=== PATIENT | female | born 1995 | race Hispanic/Latino ===

== ENCOUNTER 2019-08-06 19:07 | Observation (INO) | payer MEDICAID ==
[~2019-08-06] VITALS: Ht 160 cm; Wt 75.7 kg
[~2019-08-06 19:07] MED LIST: IBUP-1493 PO
[2019-08-06 20:21] VITALS: BP 120/78
[2019-08-06 20:26] LABS: APPEARANCE,URINE Cloudy (CLEAR); BILIRUBIN,URINE Small (NEGATIVE); COLOR,URINE Dark Yellow (YELLOW); GLUCOSE, URINE (UA) Negative (NEGATIVE); KETONES,URINE Negative (NEGATIVE); LEUKOCYTE ESTERASE ,URINE Moderate (NEGATIVE); NITRATE,URINE Negative (NEGATIVE); OCCULT BLOOD,URINE Large (NEGATIVE); PH,URINE 6.5 (5.0-8.0); PROTEIN,URINE POS 1+ mg/dL (NEGATIVE)
[2019-08-06] MEDS ORDERED: FERR-82 PO (20:38)
[2019-08-06] MEDS ORDERED: LEVE100S7 PO (20:38)
[2019-08-06 20:39] LABS: BACTERIA,URINE Moderate /HPF (None Seen)
[2019-08-06 20:40] LABS: MUCUS,URINE Moderate LPF (None Seen)
[2019-08-06] MEDS ORDERED: PREN1TAB80 PO (20:42)
[2019-08-06 21:05] LABS: AMPHET/METH SCREEN,URINE NEGATIVE (NEGATIVE); BARBITURATE SCREEN, URINE NEGATIVE (NEGATIVE); BENZODIAZEPINES SCREEN,URINE NEGATIVE (NEGATIVE); CANNABINOID SCREEN,URINE NEGATIVE (NEGATIVE); COCAINE SCREEN,URINE NEGATIVE (NEGATIVE); OPIATE SCREEN,URINE NEGATIVE (NEGATIVE); PHENCYCLIDINE SCREEN,URINE NEGATIVE (NEGATIVE)
[2019-08-06] MEDS ORDERED: LACTATED RINGERS 1000ML 1,000 ML IV PRN (21:14)
[2019-08-06 22:27] LABS: HEMATOCRIT 33.5 % (36-48); MEAN CORPUSCULAR HEMOGLOBIN 23.8 pg (27.0-33.0); MEAN CORPUSCULAR HGB CONC 30.7 g/dL (32.0-36.0); MEAN CORPUSCULAR VOLUME 77.5 fL (79-99); NUCLEATED RED BLOOD CELLS 0.1 % (0.0-0.19); PLATELET COUNT (AUTO) 176 K/uL (130-400); RED BLOOD CELL COUNT(AUTO) 4.33 MIL/uL (4.00-5.50); RED CELL DISTRIBUTION WIDTH 21.3 % (11.0-15.5); WHITE BLOOD COUNT (AUTO) 12.2 K/uL (4.8-10.8)
[2019-08-07] MEDS: LACTATED RINGERS 1000ML 1,000 ML IV SCH ×2 (00:58→03:55)
[2019-08-07] MEDS ORDERED: AMPICILLIN 2GM+NS 100ML 100 ML IV ONE (01:25)
[2019-08-07] MEDS ORDERED: AMPICILLIN 2GM+NS 100ML 100 ML IV SCH (01:30)
[2019-08-07] MEDS ORDERED: AMPICILLIN 1GM+NS 50ML 50 ML IV SCH (05:30)
[2019-08-07 07:27] LABS: RAPID PLASMA REAGIN NONREACTIVE (NONREACTIVE)
[2019-08-07] MEDS ORDERED: DEXTROSE 5%-LACTATED RINGERS 1,000 ML IV SCH (07:30)
[2019-08-08 08:09] LABS: HEPATITIS Bs ANTIGEN SCREEN P Negative (Negative)
== END 2019-08-07 07:00 | disposition home or self-care (01) ==
LOC: LDH 19:07 → OBSVTOIN 19:07 → INTOOBSV 19:07
PROVIDERS: ADMIT Obstetrics & Gynecology; ATTEND Obstetrics & Gynecology
DX: O26.893 Other specified pregnancy related conditions, third trimester (principal); R10.13 Epigastric pain; O09.893 Supervision of other high risk pregnancies, third trimester; G40.401 Other generalized epilepsy and epileptic syndromes, not intractable, with status epilepticus; Z3A.38 38 weeks gestation of pregnancy; Z91.19 Patient's noncompliance with other medical treatment and regimen
CPT/HCPCS: 36415; 80305; 81001; 85027; 86592; 86701; 86850; 86900; 86901; 87340; 87390; 96365; 96366; G0378 ×12; J0290 ×2; J7120